=== PATIENT | male | born 1975 | race Caucasian/White ===

== ENCOUNTER → 2017-07-16 | Day surgery (SDC) | payer BC ==
[~2017-07-16] MED LIST: BETAMETHASONE DISODIUM PHOS 6 MG/ML VIAL ONE; BUPIVACAINE HCL 0.5% INJ 30 ML VIAL INJ ONE; CEFAZOLIN SOD 2 GM/D5W 50ML 50 ML IV ONE; DEXAMETHASONE SOD PHOS INJ 4 MG/ML VIAL ONE; FENTANYL CITRATE/PF 100MCG/2 ML INJ ONE; KETOROLAC TROMETHAMINE 30 MG/ML VIAL ONE; LIDOCAINE HCL 2% LOCAL INJ 5 ML SDV VIAL INJ ONE; MIDAZOLAM HCL 2 MG/2 ML VIAL ONE; ONDANSETRON HCL INJ 2 MG/ML VIAL ONE; PROPOFOL IV EMULSION 10 MG/ML 20 ML VIAL ONE; SEVOFLURANE INHAL SOLN 250 ML PEN BTL ONE; [UNRECOGNIZED DRUG - CODE]
--- NOTE | 2017-07-16 10:32 | Operative Report ---
DATE OF PROCEDURE: July 16, 2017 PREOPERATIVE DIAGNOSIS: Hallux valgus deformity, left foot. POSTOPERATIVE DIAGNOSIS: Hallux valgus deformity, left foot. PROCEDURES 1. Antonio bunionectomy, left foot. 2. Intraoperative fluoroscopy. 3. Trigger-point cortisone injection. 4. Application of posterior splint on the left lower extremity. ANESTHESIA: General LMA. HEMOSTASIS: Pneumatic tourniquet, left thigh, inflated to 350 mmHg. ESTIMATED BLOOD LOSS: Less than 5 mL. INJECTABLES 1. Total of 10 mL of 8:2 mixture of 2% lidocaine plain and betamethasone. 2. Ten mL of 2% lidocaine plain as a postoperative block. ELECTRONIC COMMUNICATIONS TECHNICIAN: None. PATHOLOGY: None. INDICATION FOR PROCEDURE: Mr. Lambert is a pleasant male having discomfort and pain secondary to hallux valgus deformity of the left foot. Educated on conservative and surgical management. He wanted to proceed with surgical intervention. He was educated on the risks and complications of the same, including but not limited to deep vein thrombosis, pulmonary embolism, need for further surgery, over- or under-correction, nonunion, avascular necrosis and others. He is willing and able to proceed. DESCRIPTION OF PROCEDURE: Under mild sedation, he was brought to the operating room and placed on the operating room table in the supine position. Following induction and administration of general LMA anesthesia by anesthesia service, a well-padded pneumatic tourniquet was placed on the patient's left thigh. Next, the distal left lower extremity was scrubbed, prepped and draped in the usual aseptic manner. The extremity was then elevated and exsanguinated, and the tourniquet was inflated to 350 mmHg. Attention was then directed to the dorsomedial aspect of the left foot overlying the 1st metatarsophalangeal joint area where an incision was created overlying the same. The incision was then deepened, utilizing combination of sharp and blunt dissection and electrocautery. Once at the level of the 1st metatarsophalangeal joint and viewing the extensor hallucis longus, a lateral release was performed along the 1st intermetatarsal space. Also, the extensor hallucis brevis was transected. Next, a capsulotomy was performed along the dorsum of the 1st metatarsophalangeal joint. Subperiosteal plane dissection and subcapsular plane dissection were then carried down. The head of the 1st metatarsal was exposed and subsequently transected utilizing an oscillating saw. Next a chevron-like osteotomy was created from medial to lateral with the longer dorsal arm to accommodate for screw fixation. Upon completion of the osteotomy, the capital fragment was retracted, shifted laterally, and impacted upon the 1st metatarsal shaft. Next, this was fixated utilizing two 2.0 cortical screws from the hand modular set. Next, redundant medial bone shelf was transected and passed from the operative site. The area was then copiously irrigated. Procedure #2: Intraoperative fluoroscopy: Intraoperative fluoroscopy was utilized throughout the procedure to assess for hardware placement and anatomical correction of the deformity. Procedure #3: Trigger-point cortisone injection. A trigger-point cortisone injection was then infiltrated to decrease postoperative inflammatory response. Next, the surgical site was closed in layers. Procedure #4: A posterior splint was applied after dressings to protect the surgical site. He was then subsequently extubated and the tourniquet deflated. He was transferred to the PACU with vital signs stable. Job#: [id number]
== END | disposition home or self-care (01) ==
LOC: OR 07:01
PROVIDERS: ATTEND Podiatrist Foot Surgery
DX: M20.12 Hallux valgus (acquired), left foot (principal); I10 Essential (primary) hypertension
CPT/HCPCS: 28296; 76001; 93005; C1713; J0720; J1100; J1885; J2001; J2250; J2405

== ENCOUNTER → 2019-08-19 | Day surgery (SDC) | payer BC ==
[~2019-08-19] MED LIST changes: +AMLODIPINE BESY10 MG PO; -BETAMETHASONE DISODIUM PHOS 6 MG/ML VIAL ONE; +CEFAZOLIN SOD 1 GM/NS 50ML 100 ML IV ONE; -CEFAZOLIN SOD 2 GM/D5W 50ML 50 ML IV ONE; +ETOMIDATE 2 MG/ML 10 ML INJ IV ONE; -LIDOCAINE HCL 2% LOCAL INJ 5 ML SDV VIAL INJ ONE; +NEOSTIGMINE 1 MG/ML 10ML VIAL ONE; -ONDANSETRON HCL INJ 2 MG/ML VIAL ONE; +ONDANSETRON HCL INJ 2MG/ML 2ML 2 MG/ML VIAL ONE; -PROPOFOL IV EMULSION 10 MG/ML 20 ML VIAL ONE
[2019-08-19 09:55] VITALS: BP 133/98
--- NOTE | 2019-08-19 16:45 | Operative Report ---
DATE OF PROCEDURE: 08/19/2019 SURGEON: Sherrill Gonzalez DPM PREOPERATIVE DIAGNOSES: 1. Hallux abductovalgus. 2. Hallux interphalangeals. POSTOPERATIVE DIAGNOSES: 1. Hallux abductovalgus. 2. Hallux interphalangeals. PROCEDURES: 1. Double osteotomy, 1st ray, right. 2. Use of human allograft to prevent adhesions to promote healing. COMPLICATIONS: None. CONDITION: Stable. PET CARE ATTENDANT: None. HEMOSTASIS: Pneumatic thigh tourniquet. ESTIMATED BLOOD LOSS: Less than 10 mL. MATERIALS: Human allograft 2 x 4 from [employer]. A 10 mm staple for fixation of the Abraham and 2.5 mm screw for fixation of the 1st metatarsal osteotomy. PROCEDURE IN DETAIL: Under mild sedation, the patient was brought to the operating room, and placed on the operating table in supine position. Following IV sedation, anesthesia was obtained with a general anesthetic. At this point, the right foot scrubbed, prepped, and draped in the usual aseptic manner. The pneumatic thigh tourniquet was inflated. The leg was lowered to the table. Attention was then directed to the dorsal aspect of the right foot, where a linear incision was made overlying the 1st MPJ. The incision was deepened via sharp and blunt dissection down to the level of the 1st metatarsal. The lateral ligaments were then released in order to let the 1st digit free into more anatomical position. The sesamoids were released. The extensor bur was also tenotomized, thereby releasing some of the contracture. Attention was then directed to the head of the 1st metatarsal, where a 60-degree osteotomy was then cut through and through, the head of the metatarsal was then moved into a more lateral position, helping to close the intermetatarsal angle. A 2.5 screw was then used for fixation, there was noted to be adequate compression clinically with the use of intraoperative fluoroscopy. Attention was directed to the proximal phalanx, where an Abraham osteotomy was performed, it was then fixated with a 10 mm staple. All areas were then flushed with copious amount of normal sterile saline solution. The area was then closed, closing the deepest layer with 2-0 Vicryl, then 3-0 Vicryl, human allograft was then inserted and noted to prevent adhesions to promote healing to the area and then 4-0 Prolene. Clean dressing was applied consisting of Adaptic ointment, 4x4s, Kerlix, and an Bj bandage. The tourniquet was deflated. There was noted to be hyperemic response to all the digits. The patient tolerated the procedure and anesthesia well without complications, was transported to recovery room with vital signs stable and vascular status intact. The patient was discharged home when he meets criteria. He was given instructions to be nonweightbearing to ice and elevate the foot while at rest. Follow up with me in the office and to call the office if any questions, concerns, or new problems arise. JOSE Quick/KENIA /[id number]
== END | disposition home or self-care (01) ==
LOC: OR 05:05
PROVIDERS: ATTEND Podiatrist Foot & Ankle Surgery
DX: M20.11 Hallux valgus (acquired), right foot (principal); M20.5X1 Other deformities of toe(s) (acquired), right foot; I10 Essential (primary) hypertension; Z01.810 Encounter for preprocedural cardiovascular examination; Z01.812 Encounter for preprocedural laboratory examination; Z11.59 Encounter for screening for other viral diseases
CPT/HCPCS: 28299; 87635; 93005; J0690; J1100; J1885; J2250; J2405; J2710; J3010